=== PATIENT | male | born 1970 | race Caucasian/White ===

== ENCOUNTER 2023-09-22 18:33 | Emergency (ER) | payer OTHER, SELFPAY ==
[2023-09-22 18:47] VITALS: BP 166/99
--- NOTE | 2023-09-22 21:07 | ED.GENMED ---
History of Present Illness
General
Chief Complaint: Abdominal Pain
Source: patient
Exam Limitations: none
Time Seen by Provider: 09/22/23 20:59
Nursing documentation reviewed up to this point in time: agreed with
Travel History
Have you had any contact with someone who has COVID-19?: No
Do you have any symptoms of coronavirus? Fever > 100 degrees, chills, cough, shortness of breath, sore throat, loss of taste or smell, muscle aches, or headache?: No
History of Present Illness
History of Present Illness:
Patient presents to ED secondary to sudden onset of left lower abdominal pain, along with 'bubble' around his umbilicus, which occurred yesterday while he was shoveling snow. Since then, symptoms have resolved completely. Denies nausea or
vomiting. Denies fever or chills. Denies direct trauma. Denies previous history of similar symptoms.
Review of Systems
Review of Systems
Allergies reviewed?: Yes
All Other Systems: ROS reviewed and negative except as documented in HPI and ROS
Constitutional: Reports no symptoms
ABD/GI: Reports abdominal pain
Musculoskeletal: Reports no symptoms
Skin: Reports no symptoms
Neurological: Reports no symptoms
Phy Exam
Physical Exam
Physical Exam:
Physical Exam
General: no apparent distress, not acutely ill. afebrile
Head: nc/at. eomi
Neck: supple. no meningeal signs.
Abdomen: normal bowel sounds. not tender.
Neuro: alert and oriented. no focal neurological deficits. no ventral/umbilical hernia noted
Skin: no rash
Psychiatric: well kept. interactive and cooperative
Extremities: no edema. no calf tenderness.
Course
Vital Signs
Initial and Last Documented VS:
Initial Vital Signs
Temp Pulse Resp BP Pulse Ox
98.1 F 81 19 166/99 97
09/22/23 18:47 09/22/23 18:47 09/22/23 18:47 09/22/23 18:47 09/22/23 18:47
Last Documented Vital Signs
Temp Pulse Resp BP Pulse Ox
98.1 F 85 16 160/92 99
09/22/23 18:47 09/22/23 21:10 09/22/23 21:10 09/22/23 21:10 09/22/23 21:10
MDM/Problems Addressed
MDM/Problems Addressed:
History and exam consistent with likely reducible umbilical hernia, now resolved. Patient will be discharged home in stable condition, with recommendation to follow-up with PCP and/or surgery for an outpatient consultation, if symptoms recur.
*Critical Care Note
Total Time (30-74mins, 75-104mins- exclusive of procedures): Not Applicable
ED Attending Note
-
Portions of this chart may have been created with voice recognition software.� Occasional wrong word or��sound alike� substitutions may have occurred due to the inherent limitations of voice recognition software.
Discharge Plan
Departure
Patient Disposition: Home (Routine Discharge)
Date of Disposition: 09/22/23
Time of Disposition: 21:09
Patient with high blood pressure during this ER visit?: Yes
Condition: Good
Discharge Problem:
Hernia, umbilical
Instructions: Abdominal wall hernias
Referrals:
Sunny Tinsley MD [Active] -
Activity Restrictions/Additional Instructions:
As discussed, please follow-up with your primary care physician and/or referred general surgeon with any further concerns.
Interventions
Interventions:
*Risk Screen - Suicide Last Done: 09/22/23 18:47
*General Assessment Last Done: 09/22/23 18:47
*Neglect/Abuse Screening Last Done: 09/22/23 18:47
ED- Fall Risk Assessment Last Done: 09/22/23 21:07
*ED COVID-19 Vaccine History Last Done: 09/22/23 18:47
*Nursing Disposition Last Done: 09/22/23 21:14
ZA-Cjzfap-Stoilhbuye Assessment Last Done: 09/22/23 21:08
Discharge Date and Time
Discharge Date/Time: 09/22/23 21:14
[2023-09-22 21:10] VITALS: BP 160/92
== END 2023-09-22 21:14 | disposition home or self-care (01) ==
LOC: EMR 18:33
PROVIDERS: EMERGENCY PHYSICIAN Emergency Medicine
DX: K42.9 Umbilical hernia without obstruction or gangrene (principal); R03.0 Elevated blood-pressure reading, without diagnosis of hypertension; Z88.8 Allergy status to other drugs, medicaments and biological substances
CPT/HCPCS: 99282